=== PATIENT | female | born 1955 | race African-American/Black ===

== ENCOUNTER 2024-12-15 12:10 | Emergency (ER) | payer MEDICARE, MEDICAID ==
[~2024-12-15] VITALS: Ht 172.7 cm; Wt 117.9 kg
[2024-12-15 12:32] VITALS: O2SAT 100
[2024-12-15 14:51] LABS: EOSINOPHILS % 0.6 % (0.0-5.0); HEMATOCRIT. 42.4 % (36.0-48.0); HEMOGLOBIN. 13.5 g/dL (12.0-16.0); LYMPHOCYTES % 28.6 % (20.0-50.0); MEAN CORPUSCULAR HEMOGLOBIN 22.1 pg (28.0-32.0); MEAN CORPUSCULAR HGB CONC 31.7 g/dL (31.0-37.0); MEAN CORPUSCULAR VOLUME 69.8 fL (81.0-99.0); MEAN PLATELET VOLUME 7.1 fl (7.4-10.4); MONOCYTES % 5.5 % (2.0-8.0); NEUTROPHILS % 64.3 % (40.0-76.0); PLATELET 364 x1000/uL (130-400); RED BLOOD CELL COUNT 6.08 mill/uL (4.2-5.4); RED CELL DISTRIBUTION WIDTH 16.7 % (11.6-14.6); WHITE BLOOD COUNT 5.9 x1000/uL (4.5-11.0)
[2024-12-15 15:01] LABS: CARBON DIOXIDE 29 mEq/L (21-32); CHLORIDE 107 mEq/L (98-107); POTASSIUM 4.1 mEq/L (3.5-5.1); SODIUM 141 mEq/L (136-145)
[2024-12-15 15:02] LABS: CALCIUM 9.9 mg/dL (8.7-10.4)
[2024-12-15 15:07] LABS: CREATININE 0.7 mg/dL (0.6-1.0); GLUCOSE 106 mg/dL (70-105); UREA NITROGEN BLOOD 9 mg/dL (9-23)
[2024-12-15 15:08] LABS: DIFFERENTIAL COMMENT 1
[2024-12-15 15:09] LABS: ADD RBC MORPHOLOGY YES; ALANINE AMINOTRANSFERASE 10 IU/L (10-49); ALBUMIN 4.1 g/dL (3.2-4.8); ASPARTATE AMINOTRANSFERASE 19 IU/L (<34); BILIRUBIN TOTAL 0.7 mg/dL (0.1-1.0); PROTEIN TOTAL 7.5 g/dL (6.0-8.3)
[2024-12-15 16:32] LABS: HYPOCHROMASIA 1+; MICROCYTOSIS 3+; PLATELET ESTIMATE NORMAL
[2024-12-15 18:01] LABS: ETHANOL BLOOD < 10 mg/dL (<10)
[2024-12-15 18:09] LABS: ACETAMINOPHEN < 2 ug/mL (10-30)
[2024-12-15 20:07] LABS: CLARITY URINE CLOUDY (CLEAR); COLOR URINE DARK YELLOW (YELLOW); GLUCOSE URINE NEGATIVE (NEGATIVE); KETONES URINE TRACE (NEGATIVE); LEUKOCYTE ESTERASE URINE TRACE (NEGATIVE); NITRITE URINE NEGATIVE (NEGATIVE); OCCULT BLOOD URINE NEGATIVE (NEGATIVE); PROTEIN URINE TRACE (NEGATIVE); SPECIFIC GRAVITY URINE 1.026 (1.005-1.030)
[2024-12-15 20:21] LABS: BACTERIA URINE TRACE; RBC URINE 0-2 /hpf (0-2); SQUAMOUS EPITHELIAL CELL URINE FEW /lpf (RARE/1+); WBC URINE 0-2 /hpf (0-2)
[2024-12-15 20:25] LABS: *AMPHETAMINES SCREEN URINE NEGATIVE (NEGATIVE); *BARBITURATES SCREEN URINE NEGATIVE (NEGATIVE); *BENZODIAZEPINES SCREEN URINE NEGATIVE (NEGATIVE); *COCAINE SCREEN URINE NEGATIVE (NEGATIVE); CANNABINOID URINE SCREEN NEGATIVE (NEGATIVE); ECSTASY MDMA SCREEN URINE NEGATIVE (NEGATIVE); METHADONE URINE SCREEN NEGATIVE (NEGATIVE); OPIATES URINE SCREEN NEGATIVE (NEGATIVE); PHENCYCLIDINE URINE SCREEN NEGATIVE (NEGATIVE)
[2024-12-16 02:47] VITALS: TEMP 36.9
[2024-12-16 09:00] VITALS: BP 161/68; PULSE 56; RESP 16; O2SAT 99
[2024-12-16] MEDS ORDERED: POLY119P2 MT (10:54)
== END 2024-12-16 12:01 | disposition home or self-care (01) ==
LOC: ER 12:10
DX: F22 Delusional disorders (principal); K59.00 Constipation, unspecified; F20.9 Schizophrenia, unspecified; I10 Essential (primary) hypertension; R41.82 Altered mental status, unspecified; Z59.02 Unsheltered homelessness; Z20.822 Contact with and (suspected) exposure to COVID-19; Z79.899 Other long term (current) drug therapy
CPT/HCPCS: 36415; 74176; 80053; 80305; 80307; 80320; 80329; 81003; 85025; 87426; 99285; G0480

== ENCOUNTER 2025-01-01 19:59 | Emergency (ER) | payer MEDICARE, MEDICAID ==
[~2025-01-01] VITALS: Ht 162.6 cm; Wt 100.0 kg
[~2025-01-01 19:59] MED LIST: POLY119P2 MT
[2025-01-01 20:07] VITALS: O2SAT 100
[2025-01-01] MEDS: ONDANSETRON 4MG ODT PO STA (20:32)
[2025-01-01 22:26] VITALS: BP 140/71; PULSE 80; RESP 16; TEMP 37.2; O2SAT 100
== END 2025-01-01 23:02 | disposition home or self-care (01) ==
LOC: ER 19:59
DX: R11.0 Nausea (principal); Z77.098 Contact with and (suspected) exposure to other hazardous, chiefly nonmedicinal, chemicals; I10 Essential (primary) hypertension; I45.10 Unspecified right bundle-branch block
CPT/HCPCS: 99283; 71045; 93005; Q0162